=== PATIENT | female | born 1945 | race Two or more races ===

== ENCOUNTER 2018-02-17 15:10 | Emergency (ER) | payer MEDICARE, OTHER ==
[~2018-02-17] VITALS: Ht 152.4 cm; Wt 57.2 kg
--- NOTE | 2018-02-17 15:12 | NUR ---
PT BIB [facility] TO ER BED 09. PRESENTS W/ POSTERIOR HEAD HEMATOMA S/P MECHANICAL FALL WHILE TRYING TO GET BACK TO HER WHEELCHAIR. PT CURRENTLY DENIES PAPIN. WAS GIVEN TYLENOL PER EMS. AAOX3. STABLE VITALS. AWAITING MD BRUCE.
--- NOTE | 2018-02-17 15:29 | NUR ---
DR SERRA AT BEDSIDE FOR EVAL.
--- NOTE | 2018-02-17 15:40 | NUR ---
PT TO RADIOLOGY FOR HEAD CT SCAN VIA [facility].
--- NOTE | 2018-02-17 16:23 | NUR ---
CALLED [facility] FOR TRANSPORT TO [facility] ETA 1730 HOURS. TRIP#[id number]
--- NOTE | 2018-02-17 17:47 | NUR ---
TRANSPORTED BACK TO [facility]. STABLE CONDITION.
[2018-02-17 17:48] VITALS: BP 147/68
== END 2018-02-17 17:49 | disposition home or self-care (01) ==
LOC: ER 15:11
DX: S00.03XA Contusion of scalp, initial encounter (principal); I10 Essential (primary) hypertension; G89.29 Other chronic pain; G47.00 Insomnia, unspecified; F32.9 Major depressive disorder, single episode, unspecified; W07.XXXA Fall from chair, initial encounter; Y93.89 Activity, other specified; Y92.89 Other specified places as the place of occurrence of the external cause; Y99.8 Other external cause status
CPT/HCPCS: 70450; 99284; A4606; Z7610